=== PATIENT | female | born 1955 | race Caucasian/White ===

== ENCOUNTER 2022-09-11 08:55 | Outpatient (CLI) | payer BC, SELFPAY | END 2022-09-11 08:56 | disposition home or self-care (01) | PROVIDERS: PCP Family Medicine; Visit Provider Nurse Practitioner | DX: E55.9 Vitamin D deficiency, unspecified (principal); E78.5 Hyperlipidemia, unspecified; I10 Essential (primary) hypertension; R73.03 Prediabetes; Z53.8 Procedure and treatment not carried out for other reasons | CPT/HCPCS: 99199; 36415 ==

== ENCOUNTER 2023-07-10 03:03 | Day surgery (SDC) | payer MEDICARE, BC, SELFPAY ==
[2023-06-26 10:27] VITALS: BMI 38.9
--- NOTE | 2023-07-09 14:39 | WPDANESEPPF ---
Anes - Initial Pre Proc Eval Procedure: Operation Date: 07/10/23 12:30 Proposed Procedures p Screening Colonoscopy - Mason Chicas MD Date/Time: 07/09/23 14:39 Surgeon: Mason Chicas MD Pre Op Diagnosis: neoplasm screening Patient Data Age: 68 Gender: F Height: 1.63 m Weight: 103 kg Allergies Allergy/AdvReac Type Severity Reaction Status Date / Time colesevelam Allergy Severe stomach Verified 07/10/23 06:18 issues ezetimibe Allergy Severe itching Verified 07/10/23 06:18 naproxen Allergy Severe vomitting Verified 07/10/23 06:18 pitavastatin Allergy Severe itching Verified 07/10/23 06:18 [id number]-[id number] Reductase Allergy Severe feels like Verified 07/10/23 06:18 Inhibitor things [[id number]-Edx-Pqh Reductase crawlingon Inhibitor] her Home Medications Medication Instructions Recorded Confirmed Type aspirin 81 mg tablet,delayed 81 mg PO DAILY 11/17/19 06/27/23 History release (Adult Low Dose Aspirin) docusate sodium 100 mg capsule 100 mg PO DAILY 08/05/20 06/27/23 History (Colace) omeprazole 20 mg capsule,delayed 20 mg PO Q48H 09/08/21 06/27/23 History release amlodipine 10 mg tablet 10 mg PO DAILY #90 tabs 04/19/23 06/27/23 Rx hydrochlorothiazide 12.5 mg tablet 12.5 mg PO DAILY #90 tabs 04/19/23 06/27/23 Rx losartan 100 mg tablet 100 mg PO DAILY #90 tabs 04/19/23 06/27/23 Rx simvastatin 10 mg tablet 10 mg PO QHS #90 tabs 04/19/23 06/27/23 Rx venlafaxine 150 mg tablet,extended 150 mg PO DAILY #90 tabs 04/19/23 06/27/23 Rx release 24 hr bupropion HCl 150 mg tablet,12 hr 150 mg PO QAM #30 tabs 06/26/23 06/27/23 Rx sustained-release (Wellbutrin SR) Patient hx anesthesia problems: none Family hx anesthesia problems: none Results Review: All pre-operative results and documents have been reviewed as part of the pre-operative evaluation. [facility] Past Medical History Medical History (Updated 05/09/23 @ 14:23 by Beverly Madrigal APRN) Depression with anxiety Environmental allergies Essential (primary) hypertension Gastro-esophageal reflux disease without esophagitis Hyperlipidemia, unspecified Screening for colon cancer Surgical History Surgical History History of cholecystectomy 2005 History of hysterectomy 1990s History of left knee replacement 2007 History of tonsillectomy 1970s Family History Family History Father Hypertension Family history of elevated blood lipids Family history of heart disease in male family member before age 55 Mother Family history of diabetes mellitus in first degree relative Other Family history of lung cancer Social History Social History (Updated 05/09/23 @ 13:27 by Kathleen Maldonado MA) Smoking status: Never smoker Alcohol intake: never Substance use: never Substance use type: does not use Lack of Transportation: No Lack of Food: Never True Current Housing: I Have Housing Concerned About Future Housing: No Difficulty Paying Gas/Electric Bills: No Difficulty Paying for Meds: No Currently Unemployed: No Education: Bachelor's Degree Difficulty w/ Childcare or Family Care: No Living arrangements: with family Additional living arrangements comments: and grandson Occupation/Education: retired Gender identity (if verbalized by the patient): Female Sexual Orientation (if Verbalized by the Patient): Straight or Heterosexual Spiritual care concerns: No Agree to blood products: Yes Anes - Eval Final PreProcedure Day of Procedure 07/09/23 14:39 Patient weight: obese Heart: regular rate and rhythm Lungs: clear to auscultation Airway: Mallampati scale class II Neurological: alert and oriented Last oral intake: >/= 8 hours ASA classification: III Emergent: no Anesthetic plan: proceed Anesthesia type and monitoring: general GIVS and
[2023-07-10 06:20] VITALS: BP 145/79; PULSE 94; RESP 18; TEMP 36.6; O2SAT 99
[2023-07-10] MEDS: LACTATED RINGERS 1,000 ML 150 ML IV CONT (06:28)
--- NOTE | 2023-07-10 07:30 | PM.HPGS ---
History of Present Illness History of Present Illness Consent: Risks, benefits, and alternatives have been discussed and questions answered. Patient agrees to proceed with procedure. Chief complaint: neoplasm screening Narrative: Verenice Smith is a 68 year old female here for colonoscopy, last one 10 years ago Review of Systems Constitutional: Constitutional: Denies headache(s) and Denies weakness Eyes: Eyes: Denies blurry vision ENT: Reports Normal hearing present, Denies headache(s) and Denies neck pain Cardiovascular: Cardiovascular: Denies chest pain and Denies dyspnea Respiratory: Respiratory: Denies dyspnea Gastrointestinal: Gastrointestinal: Reports no additional gastrointestinal complaints Genitourinary: Genitourinary: Denies dysuria Musculoskeletal: Musculoskeletal: Denies neck pain Integumentary/Breasts: Skin/Breast: Denies dry skin Neurologic: Reports Normal hearing present, Denies headache(s) and Denies weakness Psychiatric: Psychiatric: Denies anxiety Endocrine: Endocrine: Denies change in body appearance Hematologic/Lymphatic: Hematologic/Lymphatic: Denies easy bleeding Allergic/Immunologic: Allergic/Immunologic: Denies urticaria PMFSH Past Medical History Medical History (Updated 05/09/23 @ 14:23 by Beverly Madrigal, TOMASA) Depression with anxiety Environmental allergies Essential (primary) hypertension Gastro-esophageal reflux disease without esophagitis Hyperlipidemia, unspecified Screening for colon cancer Surgical History Surgical History History of cholecystectomy 2005 History of hysterectomy 1990s History of left knee replacement 2008 History of tonsillectomy 1970s Family History Family History Father Hypertension Family history of elevated blood lipids Family history of heart disease in male family member before age 55 Mother Family history of diabetes mellitus in first degree relative Other Family history of lung cancer Social History Social History (Updated 05/09/23 @ 13:27 by Kathleen Maldonado MA) Smoking status: Never smoker Alcohol intake: never Substance use: never Substance use type: does not use Lack of Transportation: No Lack of Food: Never True Current Housing: I Have Housing Concerned About Future Housing: No Difficulty Paying Gas/Electric Bills: No Difficulty Paying for Meds: No Currently Unemployed: No Education: Bachelor's Degree Difficulty w/ Childcare or Family Care: No Living arrangements: with family Additional living arrangements comments: and grandson Occupation/Education: retired Gender identity (if verbalized by the patient): Female Sexual Orientation (if Verbalized by the Patient): Straight or Heterosexual Spiritual care concerns: No Agree to blood products: Yes Meds Home Medications and Allergies Home Medications Medication Instructions Recorded Confirmed Type aspirin 81 mg tablet,delayed 81 mg PO DAILY 11/17/19 06/27/23 History release (Adult Low Dose Aspirin) docusate sodium 100 mg capsule 100 mg PO DAILY 08/05/20 06/27/23 History (Colace) omeprazole 20 mg capsule,delayed 20 mg PO Q48H 09/08/21 06/27/23 History release amlodipine 10 mg tablet 10 mg PO DAILY #90 tabs 04/19/23 06/27/23 Rx hydrochlorothiazide 12.5 mg tablet 12.5 mg PO DAILY #90 tabs 04/19/23 06/27/23 Rx losartan 100 mg tablet 100 mg PO DAILY #90 tabs 04/19/23 06/27/23 Rx simvastatin 10 mg tablet 10 mg PO QHS #90 tabs 04/19/23 06/27/23 Rx venlafaxine 150 mg tablet,extended 150 mg PO DAILY #90 tabs 04/19/23 06/27/23 Rx release 24 hr bupropion HCl 150 mg tablet,12 hr 150 mg PO QAM #30 tabs 06/26/23 06/27/23 Rx sustained-release (Wellbutrin SR) Allergies Allergy/AdvReac Type Severity Reaction Status Date / Time colesevelam Allergy Severe stomach Verified 07/10/23 06:18 issues
[2023-07-10 07:50] VITALS: BP 126/74; PULSE 69; RESP 19; O2SAT 99
[2023-07-10 08:00] VITALS: BP 128/70; PULSE 75; RESP 19; O2SAT 100
[2023-07-10 08:10] VITALS: BP 134/76; PULSE 71; RESP 21; O2SAT 100
== END 2023-07-10 08:16 | disposition home or self-care (01) ==
PROVIDERS: PCP Family Medicine; Visit Provider Internal Medicine Gastroenterology
PROC: 0DJD8ZZ Inspection of Lower Intestinal Tract, Via Natural or Artificial Opening Endoscopic (ICD-10-PCS; CPT 45378; principal; 2023-07-10 07:30)
DX: Z12.11 Encounter for screening for malignant neoplasm of colon (principal); K63.89 Other specified diseases of intestine; K64.8 Other hemorrhoids; I10 Essential (primary) hypertension; K21.9 Gastro-esophageal reflux disease without esophagitis; E78.5 Hyperlipidemia, unspecified
CPT/HCPCS: G0121; J2704; J7120

== ENCOUNTER → 2024-01-02 13:18 | Outpatient (CLI) | payer MEDICARE, BC, SELFPAY ==
--- NOTE | ~2024-01-02 | MM_ITS ---
EXAMINATION: MM screening [facility] BI w [facility]vashi HISTORY: Screening mammogram TECHNIQUE: Craniocaudal and mediolateral oblique 3-D tomosynthesis images were obtained and synthetic 2-D images were generated. CAD analysis was submitted and interpreted. COMPARISON: 08/12/2018 BREAST PARENCHYMAL COMPOSITION: There are scattered areas of fibroglandular density. FINDINGS: RIGHT BREAST: There is a possible mass in the anterior third of the upper breast best appreciated 3.5 cm from the nipple on the mediolateral oblique view. LEFT BREAST: No suspicious mass, calcification, or architectural distortion are identified to suggest malignancy. There has been no suspicious interval change. IMPRESSION: 1. Possible right breast mass. 2. Additional mammographic views and possible breast ultrasound are recommended. BI-RADS Category 0: Incomplete: Needs additional imaging evaluation. Reviewed, dictated and finalized at location A. ENTARY ASSISTANT PRINCIPAL IMPRESSION: 1. Possible right breast mass. 2. Additional mammographic views and possible breast ultrasound are recommended . BI-RADS Category 0: Incomplete: Needs additional imaging evaluation.
--- NOTE | ~2024-01-02 | DEXA_ITS ---
Bone Density Report Name: LEONEL QUIROGA Age: 68 Sex: Female Ethnicity: White Date of : 1955 Indication: postmenopausal; screening for osteoporosis; hysterectomy; Referring Provider: Yrn Abdullahi Study: Bone densitometry was performed. Exam Date: January 02, 2024 Accession number: [id number] Bone Density: Region BMD T-score Z-score Classification AP Spine (L1, L2) 1.129 1.4 3.3 Normal Femoral Neck (Left) 0.882 0.3 2.1 Normal Total Hip (Left) 1.169 1.9 3.3 Normal Femoral Neck (Right) 0.943 0.8 2.6 Normal Total Hip (Right) 1.079 1.1 2.6 Normal Total Hip Mean 1.124 1.5 3.0 Normal World Health Organization criteria for BMD impression classify patients as: Normal (T-score at or above -1.0), Osteopenia (T-score between -1.0 and -2.5), or Osteoporosis (T-score at or below -2.5). 10-year Fracture Risk: FRAX not reported because: All T-scores for Spine Total, Hip Total, Femoral Neck at or above -1.0 Clinical Information Provided by Patient: Has the following medical conditions: Hysterectomy Patient maximum height was 64 Menopause Age: 40 No regular weight bearing exercise Drinks caffeinated beverages Onset of menses at age 17 Number of children 0 Impression: The patient has normal bone mass. Discussion: LOW RISK OF FRACTURE; BONE DENSITY IS WELL ABOVE THE MINIMUM DESIRABLE LEVEL AND ABOVE AVERAGE FOR AGE AND SEX AT ALL SKELETAL SITES TESTED. This person's bone density is above expected limits for age and sex. This is rarely clinically significant, but should be pursued if there are significant musculoskeletal complaints. The patient should follow a healthful lifestyle (good nutrition with adequate calcium and vitamin D, and appropriate weight-bearing exercise). Follow-Up: Consider repeating this study in 5 years or sooner if there is some new clinical indication. Reported by: [facility] on 01/02/2024 1:47:00 PM. Reviewed, dictated and finalized at location ATammy SIGALA
== END ==
PROVIDERS: PCP Family Medicine; Visit Provider Nurse Practitioner Family
DX: Z12.31 Encounter for screening mammogram for malignant neoplasm of breast (principal); R92.8 Other abnormal and inconclusive findings on diagnostic imaging of breast; Z78.0 Asymptomatic menopausal state
CPT/HCPCS: 77063; 77067; 77080

== ENCOUNTER 2024-04-21 07:44 | Outpatient (CLI) | payer MEDICARE, BC, SELFPAY ==
--- NOTE | ~2024-04-21 | MM_ITS ---
EXAMINATION: MM diagnostic [facility] RT w urvashi HISTORY: Nodular asymmetry right breast TECHNIQUE: Additional standard and spot compression 3-D tomosynthesis images of the right breast were performed and synthetic 2-D images were generated. CAD analysis was submitted and interpreted. COMPARISON: 01/02/2024, 03/17/2022 FINDINGS: There are scattered areas of fibroglandular density. Parenchymal pattern of the right breas t is unchanged. The area of mild nodularity at the upper outer right breast effaces with spot adelaide philip. No persistent mass lesion or suspicious distortion seen. Extensive benign calcifications of the right breast are again present. IMPRESSION: No mammographic evidence for malignancy. BI-RADS Category 2: Benign finding(s). Reviewed, dictated and finalized at location .
== END 2024-04-21 07:45 ==
PROVIDERS: PCP Family Medicine; Visit Provider Nurse Practitioner
DX: R92.8 Other abnormal and inconclusive findings on diagnostic imaging of breast (principal)
CPT/HCPCS: 77061; 77065; G0279

== ENCOUNTER 2025-04-22 13:04 | Outpatient (CLI) | payer MEDICARE, BC, SELFPAY ==
--- NOTE | ~2025-04-22 | MM_ITS ---
EXAMINATION: MM screening [facility] BI w urvashi HISTORY: Screening TECHNIQUE: Craniocaudal and mediolateral oblique 3-D tomosynthesis images were obtained and synthetic 2-D images were generated. CAD analysis was submitted and interpreted. COMPARISON: 05/25/2022 and 08/25/2016 BREAST PARENCHYMAL COMPOSITION: There are scattered areas of fibroglandular density. FINDINGS: Benign-appearing calcifications diffusely scattered throughout both breast parenchyma are u nchanged. There is no evidence of suspicious mass, calcification, or architectural distortion to sugg est malignancy in either breast. There has been no suspicious interval change. IMPRESSION: 1. No mammographic evidence of malignancy. 2. Recommend routine screening mammography in one year. BI-RADS Category 2: Benign finding(s). Reviewed, dictated and finalized at location B.
== END 2025-04-22 13:05 | disposition home or self-care (01) ==
LOC: MICIMG 13:05
PROVIDERS: PCP Family Medicine; Visit Provider Family Medicine
DX: Z12.31 Encounter for screening mammogram for malignant neoplasm of breast (principal)
CPT/HCPCS: 77063; 77067